=== PATIENT | male | born 1990 | race Hispanic/Latino ===

== ENCOUNTER 2018-01-24 09:39 | Emergency (ER) | payer SELFPAY ==
[~2018-01-24] VITALS: Ht 165.1 cm; Wt 92.5 kg
[~2018-01-24 09:39] MED LIST: ANTI-ITCH28 G1 TOP; BENADRYL25 MG PO; DOXYCYCLINE HY100 MG PO; IBUPROFEN400 MG PO; PERMETHRIN60 GM TOP; TYLENOL325 MG PO; VISTARIL50 MG PO
== END 2018-01-24 09:59 | disposition home or self-care (01) ==
LOC: ED 09:39
DX: M25.511 Pain in right shoulder (principal)